=== PATIENT | male | born 1940 | race Caucasian/White ===

== ENCOUNTER 2017-04-14 14:42 | Emergency (ER) | payer BC ==
[~2017-04-14] VITALS: Ht 175.3 cm; Wt 99.5 kg
[2017-04-14] MEDS ORDERED: SODIUM CHLORIDE FLUSH 10ML SYR IVF ONE (15:30)
[2017-04-14 15:58] LABS: HEMATOCRIT 41.3 % (39.2-51.8); WHITE BLOOD COUNT 10.6 x10^3/uL (3.4-10)
[2017-04-14 16:15] LABS: IS PT STATUS REG ER OR PRE ER? YES
[2017-04-14 16:22] LABS: ASPARTATE AMINO TRANSFERASE 20 U/L (15-37); BLOOD UREA NITROGEN 35 mg/dL (7-18)
[2017-04-14] MEDS ORDERED: ATOR40TA PO (17:34)
[2017-04-14] MEDS ORDERED: CARV6.252 PO (17:34)
[2017-04-14] MEDS ORDERED: FURO-92 PO (17:34)
[2017-04-14] MEDS ORDERED: APIX5TAB PO (17:34)
[2017-04-14] MEDS ORDERED: LOSA100T6 PO (17:34)
[2017-04-14] MEDS ORDERED: CHOL20002 PO (17:34)
[2017-04-14] MEDS ORDERED: EZET10TA18 PO (17:34)
[2017-04-14] MEDS ORDERED: RANI-276 PO (17:34)
[2017-04-14] MEDS ORDERED: FISH400C3 PO (17:34)
[2017-04-14] MEDS ORDERED: CALC1TAB87 PO (17:34)
[2017-04-14] MEDS ORDERED: POTA10TA5 PO (17:34)
[2017-04-14 18:24] VITALS: BP 98/79
== END 2017-04-14 18:26 | disposition home or self-care (01) ==
LOC: ED 17:18
DX: L03.114 Cellulitis of left upper limb (principal); M25.532 Pain in left wrist; R53.1 Weakness; R50.9 Fever, unspecified; Z86.711 Personal history of pulmonary embolism
CPT/HCPCS: 29125; 36415; 71020; 80053; 83880; 84484; 85025; 85610; 85730; 93005